=== PATIENT | female | born 1950 | race Hispanic/Latino ===

== ENCOUNTER 2018-09-23 11:02 | Emergency (ER) | payer OTHER ==
[2018-09-23] MEDS ORDERED: ACETAMINOPHEN EXTRA STRENGTH 500 MG TABLET ONE (11:43)
[2018-09-23 12:11] LABS: RAPID GROUP A STREP NEGATIVE (NEGATIVE)
== END 2018-09-23 12:39 | disposition home or self-care (01) ==
LOC: EDH 11:02
DX: J06.9 Acute upper respiratory infection, unspecified (principal); Z90.710 Acquired absence of both cervix and uterus
CPT/HCPCS: 87804; 87880

== ENCOUNTER 2018-10-11 17:36 | Emergency (ER) | payer OTHER ==
[2018-10-11] MEDS ORDERED: ACETAMINOPHEN EXTRA STRENGTH 500 MG TABLET ONE (18:25)
[2018-10-11 18:38] LABS: BASOPHILS % (AUTO) 0.5 % (0.0-5.0); EOSINOPHILS % (AUTO) 0.7 % (0.0-8.0); HEMATOCRIT 35.3 % (36-48); LYMPHOCYTES % (AUTO) 24.1 % (21.0-51.0); MEAN CORPUSCULAR HEMOGLOBIN 27.7 pg (27.0-33.0); MEAN CORPUSCULAR HGB CONC 32.5 g/dL (32.0-36.0); MEAN CORPUSCULAR VOLUME 85.3 fL (79-99); MONOCYTES % (AUTO) 5.5 % (3.0-13.0); NEUTROPHILS % (AUTO) 69.2 % (40.0-77.0); NUCLEATED RED BLOOD CELLS 0.1 % (0.0-0.19); PLATELET COUNT (AUTO) 234 K/uL (130-400); RED BLOOD CELL COUNT(AUTO) 4.15 MIL/uL (4.00-5.50); RED CELL DISTRIBUTION WIDTH 12.3 % (11.0-15.5); WHITE BLOOD COUNT (AUTO) 6.9 K/uL (4.8-10.8)
[2018-10-11 18:44] LABS: APPEARANCE,URINE Clear (CLEAR); BILIRUBIN,URINE Negative (NEGATIVE); COLOR,URINE Yellow (YELLOW); GLUCOSE, URINE (UA) Negative (NEGATIVE); KETONES,URINE Negative (NEGATIVE); LEUKOCYTE ESTERASE ,URINE Negative (NEGATIVE); NITRATE,URINE Negative (NEGATIVE); OCCULT BLOOD,URINE Negative (NEGATIVE); PH,URINE 5.5 (5.0-8.0); PROTEIN,URINE Negative (NEGATIVE); UROBILINOGEN,URINE 0.2 mg/dL (0.2-1.0)
[2018-10-11 18:52] LABS: CREATININE 0.6 mg/dL (0.5-1.5); POTASSIUM 3.6 mmol/L (3.5-5.1)
[2018-10-11 18:57] LABS: ALBUMIN 3.4 g/dL (3.5-5.0); BILIRUBIN,TOTAL 0.2 mg/dL (0.2-1.0); TOTAL PROTEIN, SERUM 7.3 g/dL (6.0-8.3)
[2018-10-11 19:09] LABS: INR 0.97 (0.85-1.15); PARTIAL THROMBOPLASTIN TIME 31.5 SEC (26.3-35.5); PROTHROMBIN TIME 10.2 SEC (9.6-11.6)
[2018-10-11] MEDS ORDERED: MECLIZINE HCL 25 MG TABLET ONE (19:30)
[2018-10-11] MEDS ORDERED: DEXAMETHASONE SOD PHOSPHATE 10MG/ML 1ML VIAL ONE (19:30)
== END 2018-10-11 20:40 | disposition home or self-care (01) ==
LOC: EDH 17:36
DX: J01.90 Acute sinusitis, unspecified (principal); Z90.710 Acquired absence of both cervix and uterus
CPT/HCPCS: 36415; 70450; 71045; 80053; 81003; 82550; 84484; 85025; 85610; 85730; 93005; 96372; 99284; J1100

== ENCOUNTER 2018-12-10 15:09 | Emergency (ER) | payer MEDICAID, OTHER ==
[2018-12-10 16:25] LABS: RAPID GROUP A STREP NEGATIVE (NEGATIVE)
== END 2018-12-10 17:16 | disposition home or self-care (01) ==
LOC: EDH 15:09
DX: J06.9 Acute upper respiratory infection, unspecified (principal); Z90.710 Acquired absence of both cervix and uterus
CPT/HCPCS: 87804; 87880

== ENCOUNTER 2018-12-26 23:59 | Emergency (ER) | payer OTHER ==
[2018-12-27] MEDS ORDERED: LIDOCAINE HCL 2% VISCOUS 15 ML UDCUP ONE (01:11)
[2018-12-27] MEDS ORDERED: MAG HYDROX/AL HYDROX/SIMETH ES 30 ML SUSP UDCUP ONE (01:12)
== END 2018-12-27 02:02 | disposition home or self-care (01) ==
LOC: EDH 23:59
DX: B34.9 Viral infection, unspecified (principal); Z90.710 Acquired absence of both cervix and uterus
CPT/HCPCS: 71046; 87880

== ENCOUNTER 2019-03-01 18:03 | Emergency (ER) | payer SELFPAY | END 2019-03-01 19:25 | disposition home or self-care (01) | LOC: EDH 18:03 | DX: M54.6 Pain in thoracic spine (principal); M79.601 Pain in right arm; M79.602 Pain in left arm; M79.632 Pain in left forearm; M79.631 Pain in right forearm; Z90.710 Acquired absence of both cervix and uterus ==

== ENCOUNTER 2019-06-15 13:38 | Emergency (ER) | payer MEDICAID, OTHER ==
[2019-06-15 14:44] LABS: BASOPHILS % (AUTO) 0.7 % (0.0-5.0); EOSINOPHILS % (AUTO) 1.1 % (0.0-8.0); LYMPHOCYTES % (AUTO) 29.9 % (21.0-51.0); MEAN CORPUSCULAR VOLUME 85.3 fL (79-99); MONOCYTES % (AUTO) 6.2 % (3.0-13.0); NEUTROPHILS % (AUTO) 62.1 % (40.0-77.0); PLATELET COUNT (AUTO) 287 K/uL (130-400); RED BLOOD CELL COUNT(AUTO) 4.45 MIL/uL (4.00-5.50); RED CELL DISTRIBUTION WIDTH 13.2 % (11.0-15.5); WHITE BLOOD COUNT (AUTO) 7.3 K/uL (4.8-10.8)
[2019-06-15 14:47] LABS: APPEARANCE,URINE Clear (CLEAR); BILIRUBIN,URINE Negative (NEGATIVE); COLOR,URINE Yellow (YELLOW); GLUCOSE, URINE (UA) Negative (NEGATIVE); KETONES,URINE Negative (NEGATIVE); LEUKOCYTE ESTERASE ,URINE Negative (NEGATIVE); NITRATE,URINE Negative (NEGATIVE); OCCULT BLOOD,URINE Negative (NEGATIVE); PROTEIN,URINE Negative (NEGATIVE); UROBILINOGEN,URINE 0.2 mg/dL (0.2-1.0)
[2019-06-15 14:59] LABS: CREATININE 0.7 mg/dL (0.5-1.5); POTASSIUM 4.2 mmol/L (3.5-5.1)
[2019-06-15 15:04] LABS: ALBUMIN 4.1 g/dL (3.5-5.0); BILIRUBIN,TOTAL 0.2 mg/dL (0.2-1.0); TOTAL PROTEIN, SERUM 7.6 g/dL (6.0-8.3)
[2019-06-15] MEDS ORDERED: MECLIZINE HCL 25 MG TABLET ONE (16:19)
== END 2019-06-15 16:43 | disposition home or self-care (01) ==
LOC: EDH 13:38
DX: R42 Dizziness and giddiness (principal)
CPT/HCPCS: 36415; 70450; 71046; 80053; 81003; 82550; 84484; 85025; 93005

== ENCOUNTER 2020-04-28 10:47 | Emergency (ER) | payer MEDICAID, OTHER | END 2020-04-28 12:46 | disposition home or self-care (01) | LOC: EDH 10:47 | DX: U07.1 COVID-19 (principal); J12.89 Other viral pneumonia; Z90.49 Acquired absence of other specified parts of digestive tract; Z90.710 Acquired absence of both cervix and uterus | CPT/HCPCS: 36415; 71045; 99284; U0003 ==

== ENCOUNTER 2020-08-15 21:11 | Emergency (ER) | payer MEDICAID, OTHER ==
[2020-08-15] MEDS ORDERED: HYDROCODONE/ACETAMINOPHEN 10/325 MG TAB ONE (21:59)
[2020-08-16] MEDS ORDERED: IBUPROFEN 600 MG TABLET ONE (00:23)
== END 2020-08-16 01:14 | disposition home or self-care (01) ==
LOC: EDH 21:11
DX: S00.03XA Contusion of scalp, initial encounter (principal); Z90.710 Acquired absence of both cervix and uterus; W22.8XXA Striking against or struck by other objects, initial encounter; Y93.89 Activity, other specified; Y92.89 Other specified places as the place of occurrence of the external cause; Y99.8 Other external cause status
CPT/HCPCS: 70450; 72040

== ENCOUNTER 2020-08-16 23:01 | Emergency (ER) | payer OTHER ==
[2020-08-17] MEDS ORDERED: LIDOCAINE 5% TOPICAL PATCH TP ONE (00:58)
[2020-08-17] MEDS ORDERED: ONDANSETRON ODT 4 MG TAB ONE (00:58)
[2020-08-17] MEDS ORDERED: KETOROLAC TROMETHAMINE 30MG/ML ONE (00:58)
[2020-08-17] MEDS ORDERED: ACETAMINOPHEN EXTRA STRENGTH 500 MG TABLET ONE (00:58)
== END 2020-08-17 01:22 | disposition home or self-care (01) ==
LOC: EDH 23:01
DX: S10.93XA Contusion of unspecified part of neck, initial encounter (principal); S00.93XA Contusion of unspecified part of head, initial encounter; M62.838 Other muscle spasm; F07.81 Postconcussional syndrome; Z90.710 Acquired absence of both cervix and uterus; Y08.89XA Assault by other specified means, initial encounter; Y93.89 Activity, other specified; Y92.89 Other specified places as the place of occurrence of the external cause; Y99.8 Other external cause status
CPT/HCPCS: 96372; 99284; J1885

== ENCOUNTER 2020-10-03 15:08 | Emergency (ER) | payer MEDICAID, OTHER ==
[2020-10-03 17:08] LABS: BASOPHILS % (AUTO) 0.6 % (0.0-5.0); EOSINOPHILS % (AUTO) 1.8 % (0.0-8.0); HEMATOCRIT 36.9 % (36-48); MEAN CORPUSCULAR HEMOGLOBIN 28.6 pg (27.0-33.0); MEAN CORPUSCULAR HGB CONC 32.8 g/dL (32.0-36.0); MEAN CORPUSCULAR VOLUME 87.2 fL (79-99); MONOCYTES % (AUTO) 7.9 % (3.0-13.0); NEUTROPHILS % (AUTO) 65.6 % (40.0-77.0); PLATELET COUNT (AUTO) 327 K/uL (130-400); RED BLOOD CELL COUNT(AUTO) 4.23 MIL/uL (4.00-5.50); RED CELL DISTRIBUTION WIDTH 12.9 % (11.0-15.5); WHITE BLOOD COUNT (AUTO) 7.7 K/uL (4.8-10.8)
[2020-10-03 17:18] LABS: INR 1.02 (0.85-1.15); PROTHROMBIN TIME 10.9 SEC (9.6-11.6)
[2020-10-03 17:19] LABS: PARTIAL THROMBOPLASTIN TIME 30.6 SEC (26.3-35.5)
[2020-10-03 17:20] LABS: CARBON DIOXIDE 28 mmol/L (21-32); CHLORIDE 103 mmol/L (101-111); CREATININE 0.6 mg/dL (0.5-1.5); GLOMERULAR FILTR. RATE CALC 106 mL/min (>60); GLUCOSE,RANDOM 137 mg/dL (70-105); POTASSIUM 3.3 mmol/L (3.5-5.1); SODIUM SERUM 140 mmol/L (136-145); UREA NITROGEN, BLOOD 12 mg/dL (7-18)
[2020-10-03 17:25] LABS: RAPID GROUP A STREP NEGATIVE (NEGATIVE)
[2020-10-03 17:31] LABS: ALANINE AMINOTRANSFERASE 21 U/L (12-78); ALBUMIN 3.9 g/dL (3.5-5.0); ASPARTATE AMINOTRANSFERASE 14 U/L (10-37); BILIRUBIN,TOTAL 0.2 mg/dL (0.2-1.0); CREATINE KINASE, TOTAL 51 U/L (21-232); MYOGLOBIN 31 ng/mL (10-92); TOTAL PROTEIN, SERUM 7.9 g/dL (6.0-8.3); TROPONIN I < 0.04 ng/mL (0.00-0.06)
[2020-10-03] MEDS ORDERED: POTASSIUM BICARB/CIT AC 25 MEQ TABLET.EFF ONE (19:45)
[2020-10-03] MEDS ORDERED: ASPIRIN 325 MG TABLET ONE (19:46)
[2020-10-03 19:58] LABS: APPEARANCE,URINE Clear (CLEAR); BILIRUBIN,URINE Negative (NEGATIVE); COLOR,URINE Yellow (YELLOW); GLUCOSE, URINE (UA) Negative (NEGATIVE); KETONES,URINE Negative (NEGATIVE); LEUKOCYTE ESTERASE ,URINE Negative (NEGATIVE); NITRATE,URINE Negative (NEGATIVE); OCCULT BLOOD,URINE Negative (NEGATIVE); PROTEIN,URINE Negative (NEGATIVE)
== END 2020-10-03 20:39 | disposition home or self-care (01) ==
LOC: EDH 15:08
DX: R07.89 Other chest pain (principal); E87.6 Hypokalemia; J06.0 Acute laryngopharyngitis; R03.0 Elevated blood-pressure reading, without diagnosis of hypertension; Z90.710 Acquired absence of both cervix and uterus; Z20.828 Contact with and (suspected) exposure to other viral communicable diseases
CPT/HCPCS: 36415; 71045; 80053; 81003; 82550; 83605; 83874; 84145; 84484; 85025; 85610; 85730; 86900; 86901; 87040 ×2; 87088; 87426; 87804 ×2; 87880; 93005; 99285; U0003

== ENCOUNTER 2021-04-08 11:07 | Emergency (ER) | payer MEDICAID, OTHER ==
[~2021-04-08] VITALS: Ht 157.5 cm; Wt 65.8 kg
[2021-04-08 11:45] VITALS: BP 127/61
[2021-04-08 12:03] LABS: BASOPHILS % (AUTO) 0.9 % (0.0-5.0); EOSINOPHILS % (AUTO) 1.1 % (0.0-8.0); HEMATOCRIT 36.6 % (36-48); LYMPHOCYTES % (AUTO) 24.2 % (21.0-51.0); MEAN CORPUSCULAR HEMOGLOBIN 28.5 pg (27.0-33.0); MEAN CORPUSCULAR HGB CONC 32.5 g/dL (32.0-36.0); MEAN CORPUSCULAR VOLUME 87.6 fL (79-99); NEUTROPHILS % (AUTO) 66.6 % (40.0-77.0); PLATELET COUNT (AUTO) 273 K/uL (130-400); RED BLOOD CELL COUNT(AUTO) 4.18 MIL/uL (4.00-5.50); RED CELL DISTRIBUTION WIDTH 12.8 % (11.0-15.5); WHITE BLOOD COUNT (AUTO) 6.3 K/uL (4.8-10.8)
[2021-04-08 12:12] LABS: INR 0.98 (0.85-1.15); PROTHROMBIN TIME 10.7 SEC (9.6-11.6)
[2021-04-08 12:13] LABS: PARTIAL THROMBOPLASTIN TIME 28.4 SEC (26.3-35.5)
[2021-04-08] MEDS ORDERED: LIDOCAINE HCL 2% VISCOUS 15 ML UDCUP PO SCH (12:18)
[2021-04-08] MEDS ORDERED: FAMOTIDINE 20MG TAB PO SCH (12:18)
[2021-04-08] MEDS ORDERED: MAG/ALUM/SIMETH 30 ML UDCUP PO SCH (12:18)
[2021-04-08 12:21] LABS: ALANINE AMINOTRANSFERASE 17 U/L (12-78); ALBUMIN 3.8 g/dL (3.5-5.0); ASPARTATE AMINOTRANSFERASE 13 U/L (10-37); BILIRUBIN,TOTAL 0.3 mg/dL (0.2-1.0); CARBON DIOXIDE 27 mmol/L (21-32); CHLORIDE 105 mmol/L (101-111); CREATINE KINASE, TOTAL 55 U/L (21-232); CREATININE 0.7 mg/dL (0.5-1.5); GLOMERULAR FILTR. RATE CALC 88 mL/min (>60); GLUCOSE,RANDOM 134 mg/dL (70-105); MYOGLOBIN 37 ng/mL (10-92); POTASSIUM 3.6 mmol/L (3.5-5.1); SODIUM SERUM 140 mmol/L (136-145); TOTAL PROTEIN, SERUM 7.7 g/dL (6.0-8.3); TROPONIN I < 0.04 ng/mL (0.00-0.06); UREA NITROGEN, BLOOD 14 mg/dL (7-18)
[2021-04-08 12:43] LABS: B-TYPE NATRIURETIC PEPTIDE 19 pg/mL (0-100)
[2021-04-08 14:03] LABS: APPEARANCE,URINE Clear (CLEAR); BILIRUBIN,URINE Negative (NEGATIVE); COLOR,URINE Yellow (YELLOW); GLUCOSE, URINE (UA) Negative (NEGATIVE); KETONES,URINE Negative (NEGATIVE); LEUKOCYTE ESTERASE ,URINE Negative (NEGATIVE); NITRATE,URINE Negative (NEGATIVE); OCCULT BLOOD,URINE Negative (NEGATIVE); PH,URINE 7.5 (5.0-8.0); PROTEIN,URINE Negative (NEGATIVE); UROBILINOGEN,URINE 0.2 mg/dL (0.2-1.0)
[2021-04-08] MEDS ORDERED: FAMO-136 PO (14:10)
[2021-04-08 14:18] VITALS: BP 139/58
== END 2021-04-08 14:26 | disposition home or self-care (01) ==
LOC: EDH 11:07
DX: K29.70 Gastritis, unspecified, without bleeding (principal); Z86.16 Personal history of COVID-19
CPT/HCPCS: 36415; 71045; 80053; 81003; 82550; 83874; 83880; 84484; 85025; 85610; 85730; 93005

== ENCOUNTER 2021-05-02 22:07 | Emergency (ER) | payer MEDICAID, OTHER ==
[~2021-05-02] VITALS: Ht 160 cm; Wt 61.7 kg
[~2021-05-02 22:07] MED LIST: FAMO-136 PO
[2021-05-02 23:45] VITALS: BP 133/73
[2021-05-03] MEDS ORDERED: KETOROLAC 60 MG VIAL (30MG/ML) ONE (01:44)
[2021-05-03] MEDS ORDERED: ORPHENADRINE CITRATE 30 MG/ML ML ONE (01:44)
[2021-05-03] MEDS ORDERED: KETOROLAC 60 MG VIAL (30MG/ML) IM ONE (02:00)
[2021-05-03] MEDS ORDERED: ORPHENADRINE CITRATE 30 MG/ML ML IM ONE (02:00)
[2021-05-03] MEDS ORDERED: LIDOP TP (02:12)
[2021-05-03] MEDS ORDERED: ORPH-43 PO (02:12)
[2021-05-03] MEDS ORDERED: MELO7.5T12 PO (02:12)
[2021-05-03 02:38] VITALS: BP 128/78
== END 2021-05-03 02:49 | disposition home or self-care (01) ==
LOC: EDH 22:07
DX: S46.911A Strain of unspecified muscle, fascia and tendon at shoulder and upper arm level, right arm, initial encounter (principal); M62.838 Other muscle spasm; Z79.1 Long term (current) use of non-steroidal anti-inflammatories (NSAID); Z79.899 Other long term (current) drug therapy; X58.XXXA Exposure to other specified factors, initial encounter; Y93.89 Activity, other specified; Y92.89 Other specified places as the place of occurrence of the external cause; Y99.8 Other external cause status
CPT/HCPCS: 73030; 96372 ×2; 99284; J1885; J2360; 29105

== ENCOUNTER 2021-06-21 15:28 | Observation (INO) | payer OTHER ==
[~2021-06-21] VITALS: Ht 160 cm; Wt 57.0 kg
[~2021-06-21 15:28] MED LIST changes: +LIDOP TP; +MELO7.5T12 PO; +ORPH-43 PO
[2021-06-21 16:00] LABS: BASOPHILS % (AUTO) 0.6 % (0.0-5.0); EOSINOPHILS % (AUTO) 0.9 % (0.0-8.0); HEMATOCRIT 37.5 % (36-48); LYMPHOCYTES % (AUTO) 19.1 % (21.0-51.0); MEAN CORPUSCULAR HGB CONC 32.3 g/dL (32.0-36.0); MEAN CORPUSCULAR VOLUME 86.8 fL (79-99); MONOCYTES % (AUTO) 5.6 % (3.0-13.0); NEUTROPHILS % (AUTO) 73.5 % (40.0-77.0); PLATELET COUNT (AUTO) 290 K/uL (130-400); RED BLOOD CELL COUNT(AUTO) 4.32 MIL/uL (4.00-5.50); RED CELL DISTRIBUTION WIDTH 13.2 % (11.0-15.5); WHITE BLOOD COUNT (AUTO) 10.2 K/uL (4.8-10.8)
[2021-06-21] MEDS ORDERED: MECLIZINE HCL 25 MG TABLET PO ONE (16:00)
[2021-06-21 16:04] VITALS: BP 128/54
[2021-06-21 16:07] LABS: APPEARANCE,URINE Clear (CLEAR); BILIRUBIN,URINE Negative (NEGATIVE); COLOR,URINE Yellow (YELLOW); GLUCOSE, URINE (UA) >=1000 mg/dL (NEGATIVE); KETONES,URINE Negative (NEGATIVE); LEUKOCYTE ESTERASE ,URINE Negative (NEGATIVE); NITRATE,URINE Negative (NEGATIVE); OCCULT BLOOD,URINE Negative (NEGATIVE); PROTEIN,URINE Negative (NEGATIVE); UROBILINOGEN,URINE 0.2 mg/dL (0.2-1.0)
[2021-06-21 16:19] LABS: CREATININE 0.7 mg/dL (0.5-1.5); POTASSIUM 3.9 mmol/L (3.5-5.1)
[2021-06-21] MEDS ORDERED: MECLIZINE HCL 25 MG TABLET ONE (16:23)
[2021-06-21 16:26] LABS: BILIRUBIN,TOTAL 0.2 mg/dL (0.2-1.0); TOTAL PROTEIN, SERUM 7.8 g/dL (6.0-8.3)
[2021-06-21 16:29] LABS: BACTERIA,URINE Rare /HPF (None Seen); RBC,URINE None Seen /HPF (0-1); SQUAMOUS EPITHELIAL CELL,UR 0-2 /HPF (0-2); WBC,URINE 0-1 /HPF (0-1)
[2021-06-21 16:53] LABS: B-TYPE NATRIURETIC PEPTIDE 35 pg/mL (0-100)
[2021-06-21 18:56] VITALS: BP 133/59
[2021-06-21] MEDS ORDERED: MECLIZINE HCL 25 MG TABLET PO PRN (19:00)
[2021-06-21 19:34] VITALS: BP 148/79
[2021-06-21 22:37] VITALS: BP 141/74
[2021-06-22 04:00] VITALS: BP 134/70
[2021-06-22 05:51] LABS: CREATININE 0.6 mg/dL (0.5-1.5); MAGNESIUM 2.3 mg/dL (1.80-2.40)
[2021-06-22 08:00] VITALS: BP 122/66
[2021-06-22] MEDS ORDERED: 0.9%NACL 1000ML 1,000 ML IV SCH (11:30)
[2021-06-22] MEDS ORDERED: CEFTRIAXONE 1G VIAL IVP SCH (11:30)
[2021-06-22 11:53] LABS: HEMOGLOBIN A1C 6.3 % (4.0-6.0)
[2021-06-22 12:00] VITALS: BP 125/67
[2021-06-22 15:59] VITALS: BP 113/63
[2021-06-22] MEDS ORDERED: ACETAMINOPHEN 500 MG TABLET PO PRN (17:30)
[2021-06-22] MEDS ORDERED: AEC81 PO (17:46)
[2021-06-22] MEDS ORDERED: AMOX500C2 PO (17:46)
[2021-06-22] MEDS ORDERED: FLUT16H NASAL (17:46)
[2021-06-22] MEDS ORDERED: MECL-226 PO (17:48)
[2021-06-22] MEDS ORDERED: PANT20TA PO (17:56)
[2021-06-22] MEDS ORDERED: DOXY-336 PO (17:56)
[2021-06-22 20:20] VITALS: BP 132/61
== END 2021-06-22 20:30 | disposition home or self-care (01) ==
LOC: EDH 15:28 → EDHIP 18:39 → 3BH 22:40
PROVIDERS: ADMIT Internal Medicine; ATTEND Internal Medicine
DX: R42 Dizziness and giddiness (principal); Z20.822 Contact with and (suspected) exposure to COVID-19; D64.9 Anemia, unspecified; Z86.16 Personal history of COVID-19; Z90.710 Acquired absence of both cervix and uterus; Z79.899 Other long term (current) drug therapy; Z98.890 Other specified postprocedural states; Z79.82 Long term (current) use of aspirin
CPT/HCPCS: 36415 ×2; 70450; 70551; 71045; 80048; 80053; 81001; 82550; 83036; 83735; 83880; 84100; 84439; 84443; 84481; 84484 ×2; 85025; 87635; 93005; 96361; 96374; 97116; 97161; 99285; C9803; G0378 ×24; J0696

== ENCOUNTER 2021-09-20 15:08 | Emergency (ER) | payer OTHER ==
[~2021-09-20] VITALS: Ht 162.6 cm; Wt 65.8 kg
[~2021-09-20 15:08] MED LIST changes: +AEC81 PO; +DOXY-336 PO; -FAMO-136 PO; +FLUT16H NASAL; -LIDOP TP; +MECL-226 PO; -MELO7.5T12 PO; -ORPH-43 PO; +PANT20TA PO
[2021-09-20] MEDS ORDERED: IBUPROFEN 600 MG TABLET PO ONE (16:00)
[2021-09-20 16:52] LABS: BASOPHILS % (AUTO) 0.6 % (0.0-5.0); EOSINOPHILS % (AUTO) 1.3 % (0.0-8.0); HEMATOCRIT 34.5 % (36-48); LYMPHOCYTES % (AUTO) 29.1 % (21.0-51.0); MEAN CORPUSCULAR HEMOGLOBIN 27.8 pg (27.0-33.0); MEAN CORPUSCULAR HGB CONC 32.5 g/dL (32.0-36.0); MEAN CORPUSCULAR VOLUME 85.6 fL (79-99); MONOCYTES % (AUTO) 6.9 % (3.0-13.0); NEUTROPHILS % (AUTO) 61.7 % (40.0-77.0); PLATELET COUNT (AUTO) 266 K/uL (130-400); RED BLOOD CELL COUNT(AUTO) 4.03 MIL/uL (4.00-5.50); RED CELL DISTRIBUTION WIDTH 12.8 % (11.0-15.5); WHITE BLOOD COUNT (AUTO) 7.1 K/uL (4.8-10.8)
[2021-09-20 17:07] LABS: CREATININE 0.7 mg/dL (0.5-1.5); POTASSIUM 3.8 mmol/L (3.5-5.1)
[2021-09-20] MEDS ORDERED: IBUPROFEN 600 MG TABLET ONE (17:09)
[2021-09-20 17:11] LABS: ALBUMIN 3.8 g/dL (3.5-5.0); B-TYPE NATRIURETIC PEPTIDE 24 pg/mL (0-100); BILIRUBIN,TOTAL 0.2 mg/dL (0.2-1.0); TOTAL PROTEIN, SERUM 7.2 g/dL (6.0-8.3)
[2021-09-20] MEDS ORDERED: BENZ-39 PO (17:47)
[2021-09-20] MEDS ORDERED: MAG/ALUM/SIMETH 30 ML UDCUP PO ONE (18:00)
[2021-09-20] MEDS ORDERED: COMPOUND PO MISCELLANEOUS 1 EACH MISC MISC PRN (18:00)
[2021-09-20] MEDS ORDERED: LIDO 2% VISC 30ML+MAG/AL/SIMETH 30ML+DICYCLOMINE 20MG 10ML PO ONE ×3 (18:00)
[2021-09-20 18:28] VITALS: BP 157/71
== END 2021-09-20 18:50 | disposition home or self-care (01) ==
LOC: EDH 15:08
DX: J06.9 Acute upper respiratory infection, unspecified (principal); D64.9 Anemia, unspecified; J02.9 Acute pharyngitis, unspecified; R03.0 Elevated blood-pressure reading, without diagnosis of hypertension; Z20.822 Contact with and (suspected) exposure to COVID-19; Z90.710 Acquired absence of both cervix and uterus; Z79.82 Long term (current) use of aspirin
CPT/HCPCS: 36415; 71045; 80053; 83880; 84484; 85025; 87635; 87804 ×2; 87880; 93005; 99285; C9803

== ENCOUNTER 2022-03-29 12:39 | Emergency (ER) | payer MEDICAID, OTHER ==
[~2022-03-29] VITALS: Ht 162.6 cm; Wt 63.5 kg
[~2022-03-29 12:39] MED LIST changes: +BENZ-39 PO
[2022-03-29] MEDS ORDERED: IBUPROFEN 600 MG TABLET PO ONE (15:00)
[2022-03-29] MEDS ORDERED: NAPR-1180 PO (15:18)
[2022-03-29 15:49] VITALS: BP 166/83
== END 2022-03-29 15:51 | disposition home or self-care (01) ==
LOC: EDH 12:39
DX: S63.501A Unspecified sprain of right wrist, initial encounter (principal); Z79.899 Other long term (current) drug therapy; Z79.82 Long term (current) use of aspirin; Z98.890 Other specified postprocedural states; W19.XXXA Unspecified fall, initial encounter; Y93.89 Activity, other specified; Y92.89 Other specified places as the place of occurrence of the external cause; Y99.8 Other external cause status
CPT/HCPCS: 29125; 73100

== ENCOUNTER 2022-05-26 11:00 | Emergency (ER) | payer MEDICAID, OTHER ==
[~2022-05-26] VITALS: Ht 160 cm; Wt 61.2 kg
[~2022-05-26 11:00] MED LIST changes: +NAPR-1180 PO
[2022-05-26 11:21] LABS: BASOPHILS % (AUTO) 0.5 % (0.0-5.0); EOSINOPHILS % (AUTO) 1.8 % (0.0-8.0); HEMATOCRIT 35.9 % (36-48); LYMPHOCYTES % (AUTO) 29.2 % (21.0-51.0); MEAN CORPUSCULAR HEMOGLOBIN 27.9 pg (27.0-33.0); MEAN CORPUSCULAR HGB CONC 32.6 g/dL (32.0-36.0); MEAN CORPUSCULAR VOLUME 85.5 fL (79-99); MONOCYTES % (AUTO) 8.3 % (3.0-13.0); PLATELET COUNT (AUTO) 285 K/uL (130-400); RED CELL DISTRIBUTION WIDTH 12.9 % (11.0-15.5); WHITE BLOOD COUNT (AUTO) 6.1 K/uL (4.8-10.8)
[2022-05-26] MEDS ORDERED: KETOROLAC 15MG/ML VIAL (15MG/ML) IV ONE (11:30)
[2022-05-26] MEDS ORDERED: KETOROLAC 15MG/ML VIAL (15MG/ML) ONE (11:32)
[2022-05-26 11:34] LABS: CREATININE 0.8 mg/dL (0.5-1.5); POTASSIUM 4.1 mmol/L (3.5-5.1)
[2022-05-26 11:39] LABS: ALBUMIN 3.9 g/dL (3.5-5.0); TOTAL PROTEIN, SERUM 7.2 g/dL (6.0-8.3)
[2022-05-26 11:40] LABS: B-TYPE NATRIURETIC PEPTIDE 39 pg/mL (0-100)
[2022-05-26 12:12] VITALS: BP 126/58
[2022-05-26] MEDS ORDERED: DICL50TA9 PO (12:28)
== END 2022-05-26 12:16 | disposition home or self-care (01) ==
LOC: EDH 11:00
DX: R07.89 Other chest pain (principal); R05.9 Cough, unspecified; Z79.1 Long term (current) use of non-steroidal anti-inflammatories (NSAID); Z79.82 Long term (current) use of aspirin; Z86.16 Personal history of COVID-19
CPT/HCPCS: 99285; 96374; 71045; 84484; 80053; 83880; 85025; 85378; 36415; 93005; J1885

== ENCOUNTER 2022-08-01 10:59 | Emergency (ER) | payer MEDICAID, OTHER ==
[~2022-08-01] VITALS: Ht 157.5 cm; Wt 59.9 kg
[~2022-08-01 10:59] MED LIST changes: +DICL50TA9 PO; -DOXY-336 PO; +DOXY-469 PO
[2022-08-01 11:03] VITALS: BP 104/48
[2022-08-01 11:24] LABS: BASOPHILS % (AUTO) 0.4 % (0.0-5.0); EOSINOPHILS % (AUTO) 0.5 % (0.0-8.0); HEMATOCRIT 38.1 % (36-48); LYMPHOCYTES % (AUTO) 11.3 % (21.0-51.0); MEAN CORPUSCULAR HGB CONC 32.8 g/dL (32.0-36.0); MEAN CORPUSCULAR VOLUME 85.4 fL (79-99); MONOCYTES % (AUTO) 6.3 % (3.0-13.0); NEUTROPHILS % (AUTO) 81.2 % (40.0-77.0); PLATELET COUNT (AUTO) 294 K/uL (130-400); RED BLOOD CELL COUNT(AUTO) 4.46 MIL/uL (4.00-5.50); RED CELL DISTRIBUTION WIDTH 13.3 % (11.0-15.5); WHITE BLOOD COUNT (AUTO) 10.8 K/uL (4.8-10.8)
[2022-08-01] MEDS ORDERED: MAG/ALUM/SIMETH 30 ML UDCUP PO ONE (11:30)
[2022-08-01] MEDS ORDERED: LIDOCAINE HCL 2% VISCOUS 15 ML UDCUP PO ONE (11:30)
[2022-08-01] MEDS ORDERED: DICYCLOMINE HCL 10 MG/5 ML ML PO ONE (11:30)
[2022-08-01] MEDS ORDERED: ONDANSETRON 4MG INJ IVP ONE (11:30)
[2022-08-01] MEDS ORDERED: FAMOTIDINE 20MG VIAL IV ONE (11:30)
[2022-08-01 11:36] LABS: APPEARANCE,URINE CLEAR (CLEAR); BILIRUBIN,URINE NEGATIVE (NEGATIVE); COLOR,URINE COLORLESS (YELLOW); GLUCOSE, URINE (UA) NEGATIVE (NEGATIVE); KETONES,URINE NEGATIVE (NEGATIVE); LEUKOCYTE ESTERASE ,URINE NEGATIVE Leu/uL (NEGATIVE); NITRATE,URINE NEGATIVE (NEGATIVE); OCCULT BLOOD,URINE NEGATIVE (NEGATIVE); PH,URINE 5.5 (5.0-8.0); PROTEIN,URINE NEGATIVE (NEGATIVE); UROBILINOGEN,URINE 0.2 mg/dL (0.2-1.0)
[2022-08-01 11:50] LABS: ALBUMIN 3.8 g/dL (3.5-5.0); CREATININE 0.7 mg/dL (0.5-1.5); POTASSIUM 4.2 mmol/L (3.5-5.1); TOTAL PROTEIN, SERUM 7.6 g/dL (6.0-8.3)
[2022-08-01] MEDS ORDERED: LEVOFLOXACIN 500 MG TABLET PO SCH (12:30)
[2022-08-01] MEDS ORDERED: METRONIDAZOLE 500 MG TABLET PO SCH (12:30)
[2022-08-01] MEDS ORDERED: DICY20TA2 PO (12:34)
[2022-08-01] MEDS ORDERED: ONDA4TAB10 PO (12:34)
[2022-08-01] MEDS ORDERED: LEVO-70 PO (12:34)
[2022-08-01] MEDS ORDERED: METR375C2 PO (12:34)
== END 2022-08-01 12:45 | disposition home or self-care (01) ==
LOC: EDH 10:59
DX: K52.9 Noninfective gastroenteritis and colitis, unspecified (principal); R10.9 Unspecified abdominal pain; R91.1 Solitary pulmonary nodule; Z79.899 Other long term (current) drug therapy
CPT/HCPCS: 99285; 74176; 96374; 96375; 84484; 80053; 83690; 85025; 81003; 36415; 93005; J3490; J2405; 96365

== ENCOUNTER 2023-01-07 18:19 | Emergency (ER) | payer OTHER ==
[~2023-01-07] VITALS: Ht 165.1 cm; Wt 57.2 kg
[~2023-01-07 18:19] MED LIST changes: +DICY20TA2 PO; +LEVO-70 PO; +METR375C2 PO; +ONDA4TAB10 PO
[2023-01-07 20:03] VITALS: BP 153/65
[2023-01-07 20:11] LABS: BASOPHILS % (AUTO) 0.6 % (0.0-5.0); EOSINOPHILS % (AUTO) 1.7 % (0.0-8.0); HEMATOCRIT 36.6 % (36-48); LYMPHOCYTES % (AUTO) 34.9 % (21.0-51.0); MEAN CORPUSCULAR HEMOGLOBIN 28.6 pg (27.0-33.0); MEAN CORPUSCULAR HGB CONC 32.8 g/dL (32.0-36.0); MEAN CORPUSCULAR VOLUME 87.4 fL (79-99); MONOCYTES % (AUTO) 9.2 % (3.0-13.0); NEUTROPHILS % (AUTO) 53.3 % (40.0-77.0); PLATELET COUNT (AUTO) 268 K/uL (130-400); RED BLOOD CELL COUNT(AUTO) 4.19 MIL/uL (4.00-5.50); WHITE BLOOD COUNT (AUTO) 6.3 K/uL (4.8-10.8)
[2023-01-07 20:24] LABS: CREATININE 0.8 mg/dL (0.5-1.5); POTASSIUM 3.6 mmol/L (3.5-5.1)
[2023-01-07 20:34] LABS: ALBUMIN 3.8 g/dL (3.5-5.0); TOTAL PROTEIN, SERUM 7.3 g/dL (6.0-8.3)
[2023-01-07 21:22] LABS: APPEARANCE,URINE CLEAR (CLEAR); BILIRUBIN,URINE NEGATIVE (NEGATIVE); COLOR,URINE YELLOW (YELLOW); GLUCOSE, URINE (UA) NEGATIVE (NEGATIVE); KETONES,URINE NEGATIVE (NEGATIVE); LEUKOCYTE ESTERASE ,URINE NEGATIVE Leu/uL (NEGATIVE); NITRATE,URINE NEGATIVE (NEGATIVE); OCCULT BLOOD,URINE NEGATIVE (NEGATIVE); PROTEIN,URINE 20 mg/dL (NEGATIVE); UROBILINOGEN,URINE 0.2 mg/dL (0.2-1.0)
[2023-01-07 21:27] LABS: BACTERIA,URINE RARE /HPF (None Seen); MUCUS,URINE FEW LPF (None Seen); SQUAMOUS EPITHELIAL CELL,UR FEW /HPF (0-2)
[2023-01-07] MEDS ORDERED: ONDANSETRON 4MG INJ IVP ONE (22:00)
[2023-01-07] MEDS ORDERED: MECLIZINE HCL 25 MG TABLET PO ONE (22:00)
[2023-01-07] MEDS ORDERED: ACETAMINOPHEN 325 MG TAB PO ONE (22:00)
[2023-01-08] MEDS ORDERED: MECL-160 PO (00:35)
[2023-01-08] MEDS ORDERED: ONDA4TAB10 PO (00:35)
== END 2023-01-08 01:16 | disposition home or self-care (01) ==
LOC: EDH 18:19
DX: R91.1 Solitary pulmonary nodule (principal); E86.0 Dehydration; R42 Dizziness and giddiness; Z79.899 Other long term (current) drug therapy; Z90.49 Acquired absence of other specified parts of digestive tract; Z79.82 Long term (current) use of aspirin
CPT/HCPCS: 99285; 96374; 70450; 71046; 71045; 84484; 80053; 83690; 85025; 81001; 36415; 93005; J2405

== ENCOUNTER 2023-03-06 22:19 | Emergency (ER) | payer OTHER ==
[~2023-03-06] VITALS: Ht 157.5 cm; Wt 53.1 kg
[~2023-03-06 22:19] MED LIST changes: +MECL-160 PO
[2023-03-06 22:22] VITALS: BP 130/61
[2023-03-06] MEDS ORDERED: CLIN-141 PO (23:17)
== END 2023-03-06 23:21 | disposition home or self-care (01) ==
LOC: EDH 22:19
DX: K04.7 Periapical abscess without sinus (principal); Z20.822 Contact with and (suspected) exposure to COVID-19; Z79.82 Long term (current) use of aspirin; Z79.899 Other long term (current) drug therapy; Z90.710 Acquired absence of both cervix and uterus
CPT/HCPCS: 87635; 87804; 87880

== ENCOUNTER 2023-03-09 09:03 | Emergency (ER) | payer OTHER ==
[~2023-03-09] VITALS: Ht 167.6 cm; Wt 54.4 kg
[~2023-03-09 09:03] MED LIST changes: +CLIN-141 PO
[2023-03-09 13:30] VITALS: BP 133/80
== END 2023-03-09 13:42 | disposition home or self-care (01) ==
LOC: EDH 09:03
DX: S92.351A Displaced fracture of fifth metatarsal bone, right foot, initial encounter for closed fracture (principal); Z90.49 Acquired absence of other specified parts of digestive tract; Z90.710 Acquired absence of both cervix and uterus; Z98.890 Other specified postprocedural states; Z79.899 Other long term (current) drug therapy; W18.39XA Other fall on same level, initial encounter; Y93.89 Activity, other specified; Y92.89 Other specified places as the place of occurrence of the external cause; Y99.8 Other external cause status
CPT/HCPCS: 29515; 70450; 72125; 73620

== ENCOUNTER 2023-05-06 12:03 | Emergency (ER) | payer OTHER ==
[~2023-05-06] VITALS: Ht 162.6 cm; Wt 58.1 kg
[2023-05-06 13:31] LABS: BASOPHILS % (AUTO) 0.7 % (0.0-5.0); EOSINOPHILS % (AUTO) 1.6 % (0.0-8.0); HEMATOCRIT 35.9 % (36-48); LYMPHOCYTES % (AUTO) 31.6 % (21.0-51.0); MEAN CORPUSCULAR HEMOGLOBIN 27.4 pg (27.0-33.0); MEAN CORPUSCULAR VOLUME 85.7 fL (79-99); MONOCYTES % (AUTO) 8.3 % (3.0-13.0); NEUTROPHILS % (AUTO) 57.5 % (40.0-77.0); PLATELET COUNT (AUTO) 315 K/uL (130-400); RED BLOOD CELL COUNT(AUTO) 4.19 MIL/uL (4.00-5.50); WHITE BLOOD COUNT (AUTO) 6.8 K/uL (4.8-10.8)
[2023-05-06 13:50] LABS: CREATININE 0.6 mg/dL (0.5-1.5); POTASSIUM 4.7 mmol/L (3.5-5.1)
[2023-05-06 13:55] LABS: ALBUMIN 3.8 g/dL (3.5-5.0); TOTAL PROTEIN, SERUM 7.5 g/dL (6.0-8.3)
[2023-05-06] MEDS ORDERED: ACETAMINOPHEN WITH CODEINE 1 TAB TAB PO ONE (16:00)
[2023-05-06] MEDS ORDERED: ACET-2079 PO (16:02)
[2023-05-06 16:22] VITALS: BP 148/91; PULSE 76; RESP 18; O2SAT 99
== END 2023-05-06 16:27 | disposition home or self-care (01) ==
LOC: EDH 12:03
DX: M54.6 Pain in thoracic spine (principal); Z86.16 Personal history of COVID-19; Z90.710 Acquired absence of both cervix and uterus; Z79.899 Other long term (current) drug therapy
CPT/HCPCS: 36415; 71045; 80053; 85025

== ENCOUNTER 2023-06-11 09:11 | Emergency (ER) | payer OTHER ==
[~2023-06-11] VITALS: Ht 157.5 cm; Wt 59.0 kg
[~2023-06-11 09:11] MED LIST changes: +ACET-2079 PO
[2023-06-11 14:19] VITALS: BP 134/68; PULSE 72; RESP 18; O2SAT 96
[2023-06-11] MEDS ORDERED: IBUP-2076 PO (14:26)
== END 2023-06-11 14:34 | disposition home or self-care (01) ==
LOC: EDH 09:11
DX: M25.511 Pain in right shoulder (principal); Z88.8 Allergy status to other drugs, medicaments and biological substances; Z90.710 Acquired absence of both cervix and uterus; Z86.16 Personal history of COVID-19; W01.0XXA Fall on same level from slipping, tripping and stumbling without subsequent striking against object, initial encounter; Y93.89 Activity, other specified; Y92.89 Other specified places as the place of occurrence of the external cause; Y99.8 Other external cause status
CPT/HCPCS: 72040; 73030

== ENCOUNTER 2023-09-01 17:26 | Emergency (ER) | payer OTHER ==
[~2023-09-01] VITALS: Ht 157.5 cm; Wt 57.2 kg
[~2023-09-01 17:26] MED LIST changes: +IBUP-2076 PO; -MECL-160 PO; +MECL-302 PO
[2023-09-01 18:43] LABS: SARS-CoV-2, RNA, NAAT NEGATIVE SARS CoV-2 (NEGATIVE)
[2023-09-01 18:45] LABS: RAPID GROUP A STREP negative (NEGATIVE)
[2023-09-01 18:53] LABS: INFLUENZA TYPE A Negative For Type A (NEGATIVE); INFLUENZA TYPE B Negative For Type B (NEGATIVE)
[2023-09-01] MEDS ORDERED: BENZ-39 PO (19:37)
[2023-09-01 19:39] VITALS: BP 127/60; PULSE 74; RESP 18; O2SAT 98
== END 2023-09-01 19:49 | disposition home or self-care (01) ==
LOC: EDH 17:26
DX: J06.9 Acute upper respiratory infection, unspecified (principal); Z20.822 Contact with and (suspected) exposure to COVID-19; Z79.82 Long term (current) use of aspirin; Z79.899 Other long term (current) drug therapy; Z90.710 Acquired absence of both cervix and uterus; Z98.890 Other specified postprocedural states; Z88.8 Allergy status to other drugs, medicaments and biological substances
CPT/HCPCS: 99283; 87635; 87880; 87804 ×2; C9803

== ENCOUNTER 2023-09-11 16:40 | Emergency (ER) | payer OTHER ==
[~2023-09-11] VITALS: Ht 157.5 cm; Wt 57.2 kg
[2023-09-11 17:16] LABS: BASOPHILS # (AUTO) 0.04 K/uL (0.00-0.20); BASOPHILS % (AUTO) 0.5 % (0.0-5.0); EOSINOPHILS # (AUTO) 0.12 K/uL (0.00-0.70); EOSINOPHILS % (AUTO) 1.4 % (0.0-8.0); HEMATOCRIT 36.9 % (36-48); IMMATURE GRANULOCYTE ABSOLUTE 0.02 K/uL (0-1); LYMPHOCYTES # (AUTO) 2.3 K/uL (1.0-4.8); LYMPHOCYTES % (AUTO) 27.5 % (21.0-51.0); MEAN CORPUSCULAR HEMOGLOBIN 27.8 pg (27.0-33.0); MONOCYTES # (AUTO) 0.7 K/uL (0.1-1.0); MONOCYTES % (AUTO) 7.9 % (3.0-13.0); NEUTROPHILS # (AUTO) 5.2 K/uL (1.8-7.7); NEUTROPHILS % (AUTO) 62.5 % (40.0-77.0); PLATELET COUNT (AUTO) 335 K/uL (130-400); RED BLOOD CELL COUNT(AUTO) 4.24 MIL/uL (4.00-5.50); RED CELL DISTRIBUTION WIDTH 13.2 % (11.0-15.5); WHITE BLOOD COUNT (AUTO) 8.3 K/uL (4.8-10.8)
[2023-09-11 17:19] LABS: APPEARANCE,URINE CLEAR (CLEAR); BILIRUBIN,URINE NEGATIVE (NEGATIVE); COLOR,URINE LIGHT-YELLOW (YELLOW); GLUCOSE, URINE (UA) NEGATIVE (NEGATIVE); KETONES,URINE NEGATIVE (NEGATIVE); LEUKOCYTE ESTERASE ,URINE 250 Leu/uL (NEGATIVE); NITRATE,URINE NEGATIVE (NEGATIVE); OCCULT BLOOD,URINE NEGATIVE (NEGATIVE); PROTEIN,URINE 10 mg/dL (NEGATIVE); UROBILINOGEN,URINE 0.2 mg/dL (0.2-1.0)
[2023-09-11 17:21] LABS: ADD UA MICROSCOPIC YES
[2023-09-11 17:23] LABS: BACTERIA,URINE RARE /HPF (None Seen); MUCUS,URINE RARE LPF (None Seen); OTHER CASTS, URINE 3 /LPF (None Seen); SQUAMOUS EPITHELIAL CELL,UR MOD /HPF (0-2)
[2023-09-11 17:32] LABS: CREATININE 0.7 mg/dL (0.5-1.5); POTASSIUM 4.1 mmol/L (3.5-5.1)
[2023-09-11 17:36] LABS: ALBUMIN 3.7 g/dL (3.5-5.0); BILIRUBIN,TOTAL 0.2 mg/dL (0.2-1.0); MAGNESIUM 2.2 mg/dL (1.80-2.40)
[2023-09-11 18:40] VITALS: BP 143/57; PULSE 73; RESP 17; O2SAT 99
[2023-09-11] MEDS ORDERED: ALBU2.5V2 IH (19:04)
[2023-09-11] MEDS ORDERED: MECL-302 PO (19:04)
[2023-09-11] MEDS ORDERED: CEPH500B PO (19:04)
== END 2023-09-11 19:14 | disposition home or self-care (01) ==
LOC: EDH 16:40
DX: N39.0 Urinary tract infection, site not specified (principal); Z79.82 Long term (current) use of aspirin; Z79.899 Other long term (current) drug therapy; Z90.710 Acquired absence of both cervix and uterus; Z98.890 Other specified postprocedural states; Z95.1 Presence of aortocoronary bypass graft; Z88.8 Allergy status to other drugs, medicaments and biological substances
CPT/HCPCS: 36415; 71045; 80053; 81001; 83690; 83735; 84484; 85025; 87088; 93005